=== PATIENT | male | born 1975 | race Caucasian/White ===

== ENCOUNTER → 2019-12-24 14:40 | Outpatient (CLI) | payer BC, SELFPAY ==
--- NOTE | ~2019-12-24 | MR_ITS ---
EXAMINATION: MR lumbar spine wo/w con DATE: 12/24/2019 15:40 INDICATION: Radiculopathy TECHNIQUE: Magnetic resonance imaging (MRI) of the lumbar spine was performed without intravenous con trast. Sequences included sagittal T2-weighted FSE, sagittal T2-weighted FS FSE, sagittal T1-weighted FSE, and axial T2-weighted FSE. COMPARISON: None FINDINGS: 4 mm retrolisthesis L5 on S1. Alignment is otherwise normal. Vertebral body heights are normal. There is prominent marrow edema and enhancement surrounding linear low signal underlying the left anterior aspect of the inferior endplate of L5 could represent either an acute compression fracture without a ppreciable vertebral body height loss or fibrovascular degenerative endplate changes related to the m oderate to severe disc height loss at this level. Thin linear more subtle increased signal and enhanc ement likely related to degenerative fibrovascular endplate changes along the superior endplate of S1 . There is mild edema and enhancement at the margins of a couple small likely acute Schmorl's nodes a long the right central aspects of the inferior endplates of L3 and L4. Disc desiccation and mild disc height loss at T10-T11 and L2-L3 through L4-L5. Disc desiccation and moderate disc height loss at T1 1-T12. The conus medullaris terminates at T12-L1. There is normal signal in the caudal spinal cord. P aravertebral soft tissues are unremarkable. No other abnormally enhancing lesions identified. The fol lowing disc levels are specifically discussed: T12-L1: Small right subarticular zone disc protrusion. There is mild left and minimal right facet deedee nt osteoarthritis. There is no neural foraminal stenosis. There is minimal central canal stenosis. L1-L2: The disc does not extend beyond the endplate margin. There is minimal bilateral facet joint os teoarthritis. There is no neural foraminal stenosis. There is no central canal stenosis. L2-L3: Disc is mildly bulging. There is mild left and minimal right facet joint osteoarthritis. There is mild bilateral neural foraminal stenosis. There is mild central canal stenosis. L3-L4: Disc is mildly bulging. There is mild right and minimal left facet joint osteoarthritis. There is mild bilateral neural foraminal stenosis. There is mild central canal stenosis. L4-L5: Disc is mildly bulging. There is mild bilateral facet joint osteoarthritis. There is mild bila teral neural foraminal stenosis. There is mild central canal stenosis. L5-S1: Disc is bulging with superimposed annular fissure with superimposed annular fissure and right foraminal zone disc extrusion which along with a small endplate osteophyte arising from the right pos terior inferior endplate of L5 which narrows the right lateral recess and exerts mass effect upon the traversing right S1 nerve root. There is mild right and minimal left facet joint osteoarthritis. The re is mild left and mild to moderate right neural foraminal stenosis. There is no central canal steno sis. IMPRESSION: 1. Right foraminal zone disc extrusion at L5-S1 which narrows the lateral recesses and compresses the traversing right S1 nerve root. Correlate clinically for muscle weakness of plantar flexion, sensory change of the lateral foot and small toe, and depressed ankle reflex. 2. Mild spondylosis in the more cephalad lumbar and lower thoracic spine. 3. Marrow edema and enhancement at likely acute small Schmorl's nodes along the inferior endplates of L3 and L4 and around a small low signal intensity subarticular fracture line along the left anterior inferior endplate of L5. Reviewed, dictated and finalized at location A. IMPRESSION: 1. Right foraminal zone disc extrusion at L5-S1 which narrows the lateral reces ses and compresses the maria fernanda
[2019-12-24 15:09] LABS: Estimated Glomerular Filt Rate 60
== END ==
PROVIDERS: PCP Nurse Practitioner Family; Visit Provider Nurse Practitioner Family
DX: M47.26 Other spondylosis with radiculopathy, lumbar region (principal)
CPT/HCPCS: 36415; 72158; A9577